=== PATIENT | male | born 1970 | race Caucasian/White ===

== ENCOUNTER 2020-11-14 13:28 | Observation (INO) | payer OTHER ==
[~2020-11-14] VITALS: Ht 188 cm; Wt 117.1 kg
[~2020-11-14 13:28] MED LIST: CATAPRES 0.1MG0.1 MG PO; LOPRESSOR 25 MG25 MG PO; MAG-TAB SR84 MG PO; ZOFRAN ODT 4 MG4 MG PO; ZOFRAN ODT 4 MG4 MG SL
[2020-11-14 14:08] LABS: HEMOGLOBIN 15.1 gm/dl (14.0-17.5); RED BLOOD COUNT 5.46 M/UL (4.20-5.50)
[2020-11-14 14:11] LABS: WHITE BLOOD COUNT 4.5 K/UL (4.5-11.0)
[2020-11-14] MEDS ORDERED: ASPIRIN EC81 MG PO (19:48)
[2020-11-14] MEDS ORDERED: QUETIAPINE FUM100 MG PO (19:48)
[2020-11-14] MEDS ORDERED: MAG-TAB SR84 MG PO (19:48)
[2020-11-14] MEDS ORDERED: ANTACID CALCIU215 MG PO (19:48)
[2020-11-14] MEDS ORDERED: OLANZAPINE2.5 MG PO (19:49)
[2020-11-14] MEDS ORDERED: CYCLOBENZAPRINE10 MG PO (19:55)
[2020-11-14] MEDS ORDERED: HYDROXYZINE PAM25 MG PO (19:56)
[2020-11-14] MEDS ORDERED: SINEQUAN CAP 5050 MG PO (19:57)
[2020-11-15 02:15] LABS: HEMOGLOBIN 14.7 gm/dl (14.0-17.5); RED BLOOD COUNT 5.4 M/UL (4.20-5.50); WHITE BLOOD COUNT 4.2 K/UL (4.5-11.0)
[2020-11-15] MEDS ORDERED: ROXICODONE TAB 55 MG GT (13:54)
== END 2020-11-18 11:37 | disposition home or self-care (01) ==
LOC: ER1 13:28 → CDU 16:40 → MED SURG 4 16:40
PROVIDERS: Emergency Medicine; ADMIT Surgery Trauma Surgery
PROC: 0FT44ZZ Resection of Gallbladder, Percutaneous Endoscopic Approach (ICD-10-PCS; principal; 2020-11-15 09:00)
DX: K80.12 Calculus of gallbladder with acute and chronic cholecystitis without obstruction (principal); K74.60 Unspecified cirrhosis of liver; U07.1 COVID-19; I10 Essential (primary) hypertension; B19.20 Unspecified viral hepatitis C without hepatic coma; Z88.5 Allergy status to narcotic agent; Z88.8 Allergy status to other drugs, medicaments and biological substances; Z79.899 Other long term (current) drug therapy
CPT/HCPCS: 36415; 80053; 81001; 82150; 82550; 82553; 83690; 83874; 84484; 85025; 93005; 96372; 96374; 96375; 96376; 99285; G0378; J0690; J1100; J1170; J1644; J2001; J2250; J2270; J2370; J2405; J2704; J2710; J3010; J7030; J7050; J7120; J7121; Q9962; U0002

== ENCOUNTER 2020-11-26 19:18 | Emergency (ER) | payer OTHER ==
[~2020-11-26 19:18] MED LIST changes: +ANTACID CALCIU215 MG PO; +ASPIRIN EC81 MG PO; +CYCLOBENZAPRINE10 MG PO; +HYDROXYZINE PAM25 MG PO; +OLANZAPINE2.5 MG PO; +QUETIAPINE FUM100 MG PO; +ROXICODONE TAB 55 MG GT; +SINEQUAN CAP 5050 MG PO
[2020-11-27 00:53] LABS: HEMOGLOBIN 14.4 gm/dl (14.0-17.5); RED BLOOD COUNT 5.2 M/UL (4.20-5.50); WHITE BLOOD COUNT 8.6 K/UL (4.5-11.0)
[2020-11-27] MEDS ORDERED: KEFLEX CAP 500500 MG PO (03:13)
== END 2020-11-27 03:37 | disposition home or self-care (01) ==
LOC: ER1 19:18
PROVIDERS: Physician Assistant
DX: G89.18 Other acute postprocedural pain (principal); R10.32 Left lower quadrant pain; L76.82 Other postprocedural complications of skin and subcutaneous tissue; U07.1 COVID-19; I12.9 Hypertensive chronic kidney disease with stage 1 through stage 4 chronic kidney disease, or unspecified chronic kidney disease; N18.9 Chronic kidney disease, unspecified; N17.9 Acute kidney failure, unspecified; Z86.19 Personal history of other infectious and parasitic diseases; Z88.5 Allergy status to narcotic agent; Z90.49 Acquired absence of other specified parts of digestive tract; Z98.890 Other specified postprocedural states; Y83.9 Surgical procedure, unspecified as the cause of abnormal reaction of the patient, or of later complication, without mention of misadventure at the time of the procedure
CPT/HCPCS: 80053; 83605; 83690; 85025; 87040; 99284; Q9965

== ENCOUNTER 2020-12-12 16:09 | Emergency (ER) | payer OTHER ==
[~2020-12-12 16:09] MED LIST changes: +KEFLEX CAP 500500 MG PO
[2020-12-12 18:00] LABS: HEMOGLOBIN 16.4 gm/dl (14.0-17.5); RED BLOOD COUNT 5.84 M/UL (4.20-5.50); WHITE BLOOD COUNT 9.7 K/UL (4.5-11.0)
[2020-12-12 18:27] LABS: BUN/CREATININE RATIO 17 (0-10)
[2020-12-12] MEDS ORDERED: POLYTRIM EYE DR10 ML OP (21:13)
[2020-12-12] MEDS ORDERED: BACTRIM DS TAB1 EACH PO (21:13)
== END 2020-12-13 09:28 | disposition home or self-care (01) ==
LOC: ER1 16:09
PROVIDERS: Emergency Medicine; Physician Assistant
DX: G89.18 Other acute postprocedural pain (principal); N19 Unspecified kidney failure; E87.6 Hypokalemia; E83.42 Hypomagnesemia; E86.0 Dehydration; H10.9 Unspecified conjunctivitis; F15.10 Other stimulant abuse, uncomplicated; U07.1 COVID-19; Z86.19 Personal history of other infectious and parasitic diseases; Z88.5 Allergy status to narcotic agent; Z98.890 Other specified postprocedural states
CPT/HCPCS: 36415; 80053; 80307; 82550; 82553; 83605; 83735; 83874; 84484; 85025; 87040; 93005; 99284; J7030; U0002

== ENCOUNTER 2021-01-23 19:10 | Inpatient (IN) | payer OTHER ==
[~2021-01-23] VITALS: Ht 188 cm; Wt 113.4 kg
[~2021-01-23 19:10] MED LIST changes: +BACTRIM DS TAB1 EACH PO; +POLYTRIM EYE DR10 ML OP
[2021-01-23 20:45] LABS: HEMOGLOBIN 14.4 gm/dl (14.0-17.5); RED BLOOD COUNT 5.08 M/UL (4.20-5.50); WHITE BLOOD COUNT 8.8 K/UL (4.5-11.0)
[2021-01-23] MEDS ORDERED: LITHIUM CARBON300 M1 PO (22:36)
--- NOTE | 2021-01-24 15:28 | NUR ---
PATIENT STATES "IF I DON'T GET SOMETHING TO EAT BY 4:00 O'CLOCK, I'M LEAVING." PROVIDER CALLED AND AN ORDER WAS GIVEN OVER THE PHONE WITH READ BACK TO START PATIENT ON FULL LIQUIDS DIET.
[2021-01-25 06:03] LABS: HEMOGLOBIN 13.5 gm/dl (14.0-17.5); RED BLOOD COUNT 4.84 M/UL (4.20-5.50); WHITE BLOOD COUNT 4.1 K/UL (4.5-11.0)
[2021-01-26 03:41] LABS: HEMOGLOBIN 14.1 gm/dl (14.0-17.5); RED BLOOD COUNT 5.01 M/UL (4.20-5.50); WHITE BLOOD COUNT 4.3 K/UL (4.5-11.0)
[2021-01-26] MEDS ORDERED: LEVOFLOXACIN500 MG PO (10:56)
== END 2021-01-26 19:08 | disposition home or self-care (01) | DRG 683 ==
LOC: ER1 19:10 → CDU 22:12 → MED SURG 4 22:12
PROVIDERS: Internal Medicine Nephrology; Physician Assistant Medical; ADMIT Internal Medicine
DX: N17.9 Acute kidney failure, unspecified (principal); N30.00 Acute cystitis without hematuria; E83.42 Hypomagnesemia; E87.8 Other disorders of electrolyte and fluid balance, not elsewhere classified; I12.9 Hypertensive chronic kidney disease with stage 1 through stage 4 chronic kidney disease, or unspecified chronic kidney disease; N18.30 Chronic kidney disease, stage 3 unspecified; B19.20 Unspecified viral hepatitis C without hepatic coma; Z90.5 Acquired absence of kidney; F19.11 Other psychoactive substance abuse, in remission; R19.7 Diarrhea, unspecified; R11.2 Nausea with vomiting, unspecified; Z20.822 Contact with and (suspected) exposure to COVID-19; F10.10 Alcohol abuse, uncomplicated; Z90.49 Acquired absence of other specified parts of digestive tract
CPT/HCPCS: 36415; 71045; 80048; 80053; 81001; 82150; 82436; 83605; 83690; 83735; 84133; 84300; 84484; 85025; 93005; 96365; 96375; 99285; C9113; J0696; J1644; J2405; J3475; J7030; P9047; Q0177; U0002